=== PATIENT | male | born 1990 | race Hispanic/Latino ===

== ENCOUNTER 2017-06-24 23:11 | Emergency (ER) | payer MEDICARE, OTHER ==
[2017-06-24 23:27] VITALS: BMI 33.5
[2017-06-24 23:30] VITALS: BP 140/82; PULSE 108; RESP 20; TEMP 97.7; O2SAT 97
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
== END 2017-06-24 23:30 | disposition home or self-care (01) ==
LOC: C.ER 23:11
DX: S01.01XA Laceration without foreign body of scalp, initial encounter (principal); Y04.8XXA Assault by other bodily force, initial encounter

== ENCOUNTER 2017-06-25 15:44 | Emergency (ER) | payer MEDICARE, OTHER ==
[2017-06-25 15:45] VITALS: BMI 33.5
[2017-06-25 16:10] VITALS: TEMP 98.7; O2SAT 98
--- NOTE | 2017-06-25 16:50 | CT ---
PROCEDURE: CT HEAD WITHOUT CONTRAST. HISTORY: head injury r/o bleed COMPARISON: None available. TECHNIQUE: Axial computed tomography images were obtained through the head/brain without intravenous contrast. Radiation dose: Total exam DLP = 963 mGy-cm. This CT exam was performed using one or more of the following dose reduction techniques: Automated exposure control, adjustment of the mA and/or kV according to patient size, and/or use of iterative reconstruction technique. FINDINGS: HEMORRHAGE: Few punctate foci of increased attenuation in the right frontal lobe ; for example, series 4 image 29 likely represents volume averaging with the adjacent right frontal cranium. BRAIN: No mass effect or edema. No atrophy or chronic microvascular ischemic changes. VENTRICLES: Unremarkable. No hydrocephalus. CALVARIUM: Unremarkable. PARANASAL SINUSES: Unremarkable as visualized. No significant inflammatory changes. MASTOID AIR CELLS: Unremarkable as visualized. No inflammatory changes. OTHER FINDINGS: Large amount of soft tissue swelling seen overlying the left parieto-occipital cranium. Within the soft tissue swelling there is a 3.5 x 1.6 centimeter ovoid shaped hematoma. IMPRESSION: Large amount of soft tissue swelling seen overlying the left parieto-occipital cranium. Within the soft tissue swelling there is a 3.5 x 1.6 centimeter ovoid shaped hematoma. Few punctate foci of increased attenuation in the right frontal lobe ; for example, series 4 image 29 likely represents volume averaging with the adjacent right frontal cranium. Clinical correlation. No additional acute intracranial abnormality. If focal neurologic deficit persists, consider MRI.
--- NOTE | 2017-06-25 16:54 | C.PDOC ---
History Of Present Illness 26 y/o male presents to ED for evaluation of bleeding head wound that he sustained last night. Pt admits to drinking alcohol last night, and states he is not sure how injured himself. Pt was brought to the ER last night, but signed AMA prior to his CT scan. He currently complaints of pain to the occipal area, and pain to the right side of his jaw. He has h/o prior jaw fracture s/p fixation. Patient denies other injuries/pain elsewhere. Pt is up to date with tetanus vaccination. - HPI Time Seen by Provider: 06/25/17 15:56 Chief Complaint (Nursing): Trauma History Per: Patient History/Exam Limitations: no limitations Onset/Duration Of Symptoms: Days (1) Location Of Injury: Left: Head, Posterior: Head Severity: Moderate Additional History Per: Patient, Prior Records Past Medical History Reviewed: Historical Data, Nursing Documentation, Vital Signs Vital Signs: Last Vital Signs Temp 98.7 F 06/25/17 15:56 Pulse 81 06/25/17 17:23 Resp 18 06/25/17 17:23 BP 138/83 06/25/17 17:23 Pulse Ox 98 06/29/17 16:42 - Medical History PMH: No Chronic Diseases - [facility] Procedures APPLICATION OF SPLINT (04/18/14) Family History: States: No Known Family Hx - Social History Hx Tobacco Use: Yes Hx Alcohol Use: No Hx Substance Use: No - Immunization History Hx Tetanus Toxoid Vaccination: Yes Hx Influenza Vaccination: No Hx Pneumococcal Vaccination: No Review Of Systems Except As Marked, All Systems Reviewed And Found Negative. Constitutional: Negative for: Fever, Chills ENT: Positive for: Other (right side jaw pain) Cardiovascular: Negative for: Chest Pain, Palpitations Respiratory: Negative for: Cough, Shortness of Breath Gastrointestinal: Negative for: Nausea, Vomiting, Abdominal Pain Skin: Positive for: Other (laceration to left occiput) Neurological: Negative for: Weakness, Numbness, Headache, Dizziness Physical Exam - Physical Exam Appears: Well, Non-toxic, Other (in mild pain ) Skin: Warm, Dry Head: Normacephalic, Swelling (left occiput), Laceration (1cm laceration at left occiput with underlying swelling/hematoma) Eye(s): bilateral: Normal Inspection ((-) [place] eyes), PERRL, EOMI Ear(s): Bilateral: Normal ((-) Fiore sign ) Nose: Normal, No Discharge, No Epistaxis, No Deformity, No Tenderness Oral Mucosa: Moist Tongue: Normal Appearing, No Swelling, No Lesions, No Laceration Lips: No Swelling, Abrasion (small abrasion to left inner upper lip) Teeth: Normal Dentition, No Tender To Palpation, No Loose, No Avulsed Gingiva: Normal Appearing Throat: Normal, No Erythema, No Exudate Neck: Normal ROM, No Midline Cervical Tenderness, No Paracervical Tenderness, No Step Off Deformity, Supple Chest: Symmetrical, No Tenderness Cardiovascular: Rhythm Regular Respiratory: Normal Breath Sounds, No Rales, No Rhonchi, No Wheezing Gastrointestinal/Abdominal: Normal Exam, Bowel Sounds, Soft, No Tenderness Back: Normal Inspection, No Vertebral Tenderness, No Paraspinal Tenderness Extremity: Normal ROM, No Tenderness, No Pedal Edema, Capillary Refill (<2 sec.) , No Deformity, No Swelling Extremity: Bilateral: Atraumatic, Normal Color And Temperature, Normal ROM Neurological/Psych: Oriented x3, Normal Speech, Normal Cognition, Normal Cranial Nerves, Normal Motor, Normal Sensation Gait: Steady ED Course And Treatment O2 Sat by Pulse Oximetry: 98 (on RA) Pulse Ox Interpretation: Normal - CT Scan/US Head CT Other Rad Studies (CT/US): Read By Radiologist, Radiology Report Reviewed CT/US Interpretation: Accession No. : [id number]. Patient Name / ID : JULIO MATHEWS / [id number]. Exam Date : 06/25/2017 16:23:59 ( Approved ). Study Comment : Sex / Age : M / 26Y. Creator : Arpan Sheldon MD. Dictator : Arpan Sheldon MD. Strategic Business Development : Director Of Marketing [employer] : Apran Sheldon MD. Approver2 : Report Date : 06/25/2017 16:48:46. My Comment : . PROCEDURE: CT HEAD WITHOUT CONTRAST. HISTORY: head injury r/o bleed. COMPARISON: None available. TECHNIQUE: Axial computed tomography images were obtained through the head/brain without intravenous contrast. Radiation dose: Total exam DLP = 963 mGy-cm. This CT exam was performed using one or more of the following dose reduction techniques: Automated exposure control, adjustment of the mA and/or kV according to patient size, and/or use of iterative reconstruction technique. FINDINGS: HEMORRHAGE: Few punctate foci of increased attenuation in the right frontal lobe ; for example, series 4 image 29 likely represents volume averaging with the adjacent right frontal cranium. BRAIN: No mass effect or edema. No atrophy or chronic microvascular ischemic changes. VENTRICLES: Unremarkable. No hydrocephalus. CALVARIUM: Unremarkable. PARANASAL SINUSES: Unremarkable as visualized. No significant inflammatory changes. MASTOID AIR CELLS: Unremarkable as visualized. No inflammatory changes. OTHER FINDINGS: Large amount of soft tissue swelling seen overlying the left parieto-occipital cranium. Within the soft tissue swelling there is a 3.5 x 1.6 centimeter ovoid shaped hematoma. IMPRESSION: Large amount of soft tissue swelling seen overlying the left parieto-occipital cranium. Within the soft tissue swelling there is a 3.5 x 1.6 centimeter ovoid shaped hematoma. Few punctate foci of increased attenuation in the right frontal lobe ; for example, series 4 image 29 likely represents volume averaging with the adjacent right frontal cranium. Clinical correlation. No additional acute intracranial abnormality. If focal neurologic deficit persists, consider MRI. Maxillofacial CT Other Rad Studies (CT/US): Read By Radiologist, Radiology Report Reviewed CT/US Interpretation: Accession No. : [id number]. Patient Name / ID : JULIO MATHEWS / [id number]. Exam Date : 06/25/2017 16:26:16 ( Approved ). Study Comment : Sex / Age : M / 26Y. Creator : Arpan Sheldon MD. Dictator : Arpan Sheldon MD. Strategic Business Development : Director Of Marketing [employer] : Arpan Sheldon MD. Approver2 : Report Date : 06/25/2017 17:09:41. My Comment : . CT maxillofacial. History: Jaw pain. Injury. Comparison: None available. Technique: Multiple contiguous axial images were performed through the maxillofacial region without the use of intravenous contrast. Subsequently sagittal and coronal reformatted images were obtained. Findings: Chronic fracture deformity of the mid left lamina papyracea with herniation of a portion of the left intraconal fat extending into the region of the left mid ethmoid air cells best seen on series 3 and 2, images 95, likely chronic. Clinical correlation. Minimal mucosal thickening of the right maxillary sinus. Mild mucosal thickening of the sphenoid sinus. Mild mucosal thickening of the mid and posterior left ethmoid air cells. Frontal sinus is preserved. Bilateral mastoid air cells are preserved. Few dental caries noted. Bilateral orbital globes appear preserved. No evidence of acute displaced fracture. Suggestion of some retained teeth within the posterior bilateral maxilla partially extruding into the maxillary sinuses. Impression: 1. Chronic fracture deformity of the mid left lamina papyracea with herniation of a portion of the left intraconal fat extending into the region of the left mid ethmoid air cells best seen on series 3 and 2, images 95, likely chronic. Clinical correlation. 2. Minimal mucosal thickening of the right maxillary sinus. 3. Mild mucosal thickening of the sphenoid sinus. 4. Mild mucosal thickening of the mid and posterior left ethmoid air cells. 5. Few dental caries noted. Progress Note: CT head and maxillofacial ordered and reviewed. Patient was given PO Tylenol, and later PO Percocet. Laceration was repaired by me, patient tolerated well. Reevaluation Time: 17:35 Reassessment Condition: Improved (Patient reassessed, pain has improved and he states he feels better. CT scans (-) for bleeding, facial fxs. Patient instructed to return to ED in 7 days for staple removal, and to follow up with PMD/clinic in 1-2 days. He was given Rxs for Naprosyn and Tylenol #3. He understands he should return to ED if he has any concerning symptoms.) Laceration - Laceration Repair left occiput Wound Length (In cm): 1cm Description Of Wound: Linear Wound Cleansed With: Sterile Saline Wound Examination: Irrigated With Saline, No FB With Wound Exploration Wound Closure: Jerri (3) Wound Complexity: Simple Disposition Counseled Patient/Family Regarding: Studies Performed, Diagnosis, Need For Followup, Rx Given - Disposition Referrals: [facility] [Outside] Disposition: HOME/ ROUTINE Disposition Time: 17:30 Condition: STABLE Additional Instructions: FOLLOW UP WITH YOUR DOCTOR/CLINIC IN 1-2 DAYS USE PAIN MEDICATION NEEDED STAPLE REMOVAL IN 5-7 DAYS RETURN TO ER IF SYMPTOMS WORSEN Prescriptions: Acetaminophen with Codeine [Tylenol with Codeine #3 Tablet] 1 each PO Q6 PRN # 15 tablet PRN Reason: pain Naproxen [Naprosyn Tab] 375 mg PO BID PRN #20 tab PRN Reason: pain Instructions: Laceration (ED), Head Injury (ED) Forms: [employer] (Turkmen) Print Language: HUNGARIAN - Clinical Impression Clinical Impression: Scalp laceration, Scalp hematoma, Closed head injury - Scribe Statement The provider has reviewed the documentation as recorded by the Scribgildardo Mariee All medical record entries made by the Scribe were at my direction and personally dictated by me. I have reviewed the chart and agree that the record accurately reflects my personal performance of the history, physical exam, medical decision making, and the department course for this patient. I have also personally directed, reviewed, and agree with the discharge instructions and disposition.
--- NOTE | 2017-06-25 17:10 | CT ---
CT maxillofacial History: Jaw pain. Injury. Comparison: None available. Technique: Multiple contiguous axial images were performed through the maxillofacial region without the use of intravenous contrast. Subsequently sagittal and coronal reformatted images were obtained. Findings: Chronic fracture deformity of the mid left lamina papyracea with herniation of a portion of the left intraconal fat extending into the region of the left mid ethmoid air cells best seen on series 3 and 2, images 95, likely chronic. Clinical correlation. Minimal mucosal thickening of the right maxillary sinus. Mild mucosal thickening of the sphenoid sinus. Mild mucosal thickening of the mid and posterior left ethmoid air cells. Frontal sinus is preserved. Bilateral mastoid air cells are preserved. Few dental caries noted. Bilateral orbital globes appear preserved. No evidence of acute displaced fracture. Suggestion of some retained teeth within the posterior bilateral maxilla partially extruding into the maxillary sinuses. Impression: 1. Chronic fracture deformity of the mid left lamina papyracea with herniation of a portion of the left intraconal fat extending into the region of the left mid ethmoid air cells best seen on series 3 and 2, images 95, likely chronic. Clinical correlation. 2. Minimal mucosal thickening of the right maxillary sinus. 3. Mild mucosal thickening of the sphenoid sinus. 4. Mild mucosal thickening of the mid and posterior left ethmoid air cells. 5. Few dental caries noted.
[2017-06-25] MEDS ORDERED: Oxycodone/Acetaminophen 5/325 mg Tab PO STA (17:16)
[2017-06-25] MEDS ORDERED: Oxycodone/Acetaminophen 5/325 mg Tab ONE (17:20)
[2017-06-25 17:24] VITALS: BP 138/83; PULSE 81; RESP 18
[2017-06-25] MEDS ORDERED: Bacitracin 500 Units/gm Oint Foilpak UD TOP ONE (17:28)
[2017-06-25] MEDS ORDERED: Bacitracin 500 Units/gm Oint Foilpak UD ONE (17:37)
== END 2017-06-25 17:45 | disposition home or self-care (01) ==
LOC: C.ER 15:44
DX: S01.01XD Laceration without foreign body of scalp, subsequent encounter (principal); X58.XXXD Exposure to other specified factors, subsequent encounter

== ENCOUNTER 2017-07-06 10:13 | Emergency (ER) | payer MEDICARE, OTHER ==
[2017-07-06 10:13] VITALS: BMI 33.5
[2017-07-06 10:17] VITALS: BP 131/82; PULSE 89; RESP 20; O2SAT 99
--- NOTE | 2017-07-06 13:42 | C.PDOC ---
History Of Present Illness 26 y/o male presents to ED for staple removal on lac to head applied on 06/27. Patient denies active bleeding, headache, vision changes, new injury or any other complaints at this time. Time Seen by Provider: 07/06/17 10:22 Chief Complaint (Nursing): Suture/Staple Removal History Per: Patient History/Exam Limitations: no limitations Onset/Duration Of Symptoms: Days Ago Current Symptoms Are (Timing): Still Present Past Medical History Reviewed: Historical Data, Nursing Documentation, Vital Signs Vital Signs: Last Vital Signs Temp Pulse 89 07/06/17 10:15 Resp 20 07/06/17 10:15 BP 131/82 07/06/17 10:15 Pulse Ox 99 07/06/17 13:53 - Medical History PMH: No Chronic Diseases Surgical History: No Surg Hx - [facility] Procedures APPLICATION OF SPLINT (04/18/14) Family History: States: No Known Family Hx - Social History Hx Tobacco Use: Yes Hx Alcohol Use: Yes Hx Substance Use: Yes - Immunization History Hx Tetanus Toxoid Vaccination: Yes Hx Influenza Vaccination: No Hx Pneumococcal Vaccination: No Review Of Systems Except As Marked, All Systems Reviewed And Found Negative. Constitutional: Negative for: Fever, Chills Eyes: Negative for: Vision Change Skin: Negative for: Rash Neurological: Negative for: Weakness, Numbness, Headache, Dizziness Physical Exam - Physical Exam Appears: Non-toxic, No Acute Distress Skin: Normal Color, Warm, Dry, No Rash Head: Normacephalic, No Tenderness, No Swelling Eye(s): bilateral: Normal Inspection, PERRL, EOMI Oral Mucosa: Moist Neck: Normal ROM, Supple Extremity: Normal ROM, No Tenderness, Capillary Refill (<2 seconds), No Deformity, No Swelling Pulses: Left Radial: Normal, Right Radial: Normal Neurological/Psych: Oriented x3, Normal Motor, Normal Sensation ED Course And Treatment O2 Sat by Pulse Oximetry: 99 Progress Note: 4 ayden removed from lac, patient tolerated well Disposition - Disposition Disposition: HOME/ ROUTINE Disposition Time: 10:20 Condition: GOOD Additional Instructions: Thank you for letting us take care of you today. Your provider was Dr. Hamilton. You were treated for staple removal. The emergency medical care you received today was directed at your acute symptoms. If you were prescribed any medication, please fill it and take as directed. It may take several days for your symptoms to resolve. Return to the Emergency Department if your symptoms worsen, do not improve, or if you have any other problems. Please contact your doctor or call one of the physicians/clinics you have been referred to that are listed on the Patient Visit Information form that is included in your discharge packet. Bring any paperwork you were given at discharge with you along with any medications you are taking to your follow up visit. Our treatment cannot replace ongoing medical care by a primary care provider (PCP) outside of the emergency department. Thank you for allowing the [facility] team to be part of your care today. Apply ice to the area to bring down any swelling. Return to the emergency room if you have any concerns. Forms: [employer] (Syriac) - Clinical Impression Clinical Impression: Removal of ayden - Scribe Statement The provider has reviewed the documentation as recorded by the Zbigniewibgildardo Najera All medical record entries made by the Zbigniewibgildardo were at my direction and personally dictated by me. I have reviewed the chart and agree that the record accurately reflects my personal performance of the history, physical exam, medical decision making, and the department course for this patient. I have also personally directed, reviewed, and agree with the discharge instructions and disposition.
== END 2017-07-06 10:33 | disposition home or self-care (01) ==
LOC: C.ER 10:13
DX: Z48.02 Encounter for removal of sutures (principal)